=== PATIENT | female | born 1955 | race Caucasian/White ===

== ENCOUNTER 2018-02-11 11:44 | Outpatient (REF) | payer BC, SELFPAY ==
[2018-02-11 13:45] LABS: ALT 24 U/L (12-78); AST 23 U/L (15-37); Albumin 4.3 g/dL (3.4-5.0); Alkaline Phosphatase 96 U/L (46-116); Anion Gap 11.1 mmol/L (3-11); BUN 15 mg/dL (7-18); Bilirubin, Total 0.5 mg/dL (0.2-1.0); CO2 25.9 mmol/L (21.0-32.0); CREATININE 0.72 mg/dL (0.55-1.02); Calcium 9.4 mg/dL (8.5-10.1); Chloride 103 mmol/L (98-107); Cholesterol 190 mg/dL (50-200); Glucose 98 mg/dL (70-100); HDL Cholesterol 42 mg/dL (40-60); LDL CHOLESTEROL 127 mg/dL (<100); Potassium 4.5 mmol/L (3.5-5.1); Sodium 140 mmol/L (136-145); Total Protein 7.5 g/dL (6.4-8.2); Triglyceride 189 mg/dL (30-150)
== END 2018-02-11 12:04 ==
LOC: NCHCN 11:44
PROVIDERS: PCP Family Medicine; Visit Provider Nurse Practitioner
DX: R03.0 Elevated blood-pressure reading, without diagnosis of hypertension (principal); Z13.220 Encounter for screening for lipoid disorders; Z13.29 Encounter for screening for other suspected endocrine disorder
CPT/HCPCS: 80053; 80061; 83721; 84443

== ENCOUNTER 2018-09-29 12:15 | Outpatient (REF) | payer BC, SELFPAY ==
--- NOTE | 2018-09-29 10:53 | SKI_PTH ---
PATIENT: Laurie Coy LOC: [facility] U#:[id number] AGE/SX: 63/F ROOM: RE09/29/[address]: Messi Carmona DO : 1955 BED: DIS: 09/29/2018 SPEC #: [id number] RECD: 09/29/18 18:00 STATUS: RODDY REWill #: [id number] PASHA: 09/29/18 10:[address]: Messi Carmona DEPT: Surgical Specimen RECD BY: Svetlana Anderson ENTERED: 09/29/18 18:00 SP TYPE: LEVI MADRID DR: Debbie Montanez Tissues: 1 - SKIN BIOPSY(SHAVE/PUNCH) 2 - SKIN BIOPSY(SHAVE/PUNCH) 3 - SKIN BIOPSY(SHAVE/PUNCH) Procedures: SKIN LEVEL 4 Comments: [id number]
== END 2018-09-29 12:35 ==
LOC: LBN 12:15
PROVIDERS: PCP Otolaryngology Otolaryngology/Facial Plastic Surgery; Visit Provider Otolaryngology Otolaryngology/Facial Plastic Surgery
DX: C44.319 Basal cell carcinoma of skin of other parts of face (principal); D04.39 Carcinoma in situ of skin of other parts of face
CPT/HCPCS: 88305

== ENCOUNTER 2019-12-24 02:21 | Outpatient (CLI) | payer MEDICARE, SELFPAY ==
--- NOTE | 2019-12-24 09:00 | ETT_ITS ---
APPROVED REPORT Exam: Exercise Treadmill Patient Location: Out-Patient Room/Bed: Stress Nurse: Rona Garcia RN BMI: 28.89 Baseline Rhythm: Sinus Rhythm Indications: Patient presented to [facility] in October with left sided chest ???tightness?? ? with tingling in left arm, not related to activity. Patient states pain lasted approximately 30-40 minutes. Medical History Medical History: No medical history per patient/notes. Cardiac Medications: Simvastatin. Allergies: No known drug allergies Cardiac Risk Factors: FHX of CAD, HTN, Hyperlipidemia, Smoking Previous Cardiac Procedures: None Pretest Chest Pain Characteristics: No chest pain Exercise History: Physically active Physical Disabilities: None Lung Sounds: Clear to auscultation Heart Sounds: Regular Stress Test Details Test: Exercise stress testing was performed using a Jon protocol. Rest Stress HR Resting HR Supine: 75 bpm Max Heart Rate (APMHR): 155 bpm Resting HR Standin bpm Target HR (85% APMHR): 131 bpm Max HR Achieved: 136 bpm % of APMHR: 87 HR response to stress: Normal HR response to stress BP Resting BP Supine: 162/90 mmHg Resting BP Standin/88 mmHg Max BP: 198/72 mmHg BP response to stress: Normal blood pressure response to stress. ECG Resting ECG: Sinus Rhythm Stress ECG: Sinus Tachycardia ST Change: Normal Arrhythmia: None Recovery ECG: Sinus Rhythm Recovery ST Change: Normal Recovery Arrhythmia: None Clinical Reason for Termination: Fatigue, Dyspnea Stress Symptoms: None reported per patient Exercise duration: 6 min08 sec Highest Stage Reached: Stage 3: 3.4 mph at 14% grade. Exercise capacity: 7.21 METs Functional Capacity: Average Capacity Stress ECG Conclusion 1. The patient exercised for 6 minutes (7 minutes). Rate-pressure product was 25,000. 2. Patient no symptoms suggestive of ischemia. 3. There was no evidence of ischemia on the ECG portion of the exam. 4. The Mendes Score ( 5) estimates an annual cardiovascular mortality of 1% and a five year survival of 94%. Using the Mendes Score there is a low probability of any angiographic coronary disease. Stress Test Summary STAGE Time (mins) Speed (mph) Grade (%) HR BP SYMPTOMS METS Supine 75 162/90 Standing 79 168/88 1 3 1.7 10 118 190/78 4.6 2 6 2.5 12 136 194/70 7 1 min recovery 129 198/72 3 min recovery 100 176/78 6 min recovery 92 166/88 9 min recovery 90 158/90
== END 2019-12-24 02:41 ==
PROVIDERS: PCP Nurse Practitioner; Visit Provider Nurse Practitioner
DX: R07.89 Other chest pain (principal); I10 Essential (primary) hypertension; F17.210 Nicotine dependence, cigarettes, uncomplicated; E78.5 Hyperlipidemia, unspecified; Z82.49 Family history of ischemic heart disease and other diseases of the circulatory system
CPT/HCPCS: 93016; 93018; 93017

== ENCOUNTER 2020-09-22 11:17 | Outpatient (CLI) | payer MEDICARE, SELFPAY ==
--- NOTE | 2020-09-22 10:31 | DI.RAD_ITS ---
Exam(s) XR HIP RT COMPLETE AP PELVIS EXAM: XR HIP RT COMPLETE AP PELVIS CLINICAL HISTORY: RT HIP PAIN M25.551 TECHNIQUE: COMPARISON: No exams were available for comparison FINDINGS: Three views were obtained. Cartilaginous joint space of both hips appear fairly well maintained. Th ere are minimal marginal osteophytes of the femoral heads and acetabula bilaterally, mild hypertrophi c spurring of the greater trochanters also noted bilaterally. IMPRESSION: Mild DJD both hips. RADIATION DOSE DELIVERED: Total DLP
--- OUTSIDE RECORDS SUMMARY | 2020-09-23 11:20 | XMS_ITS ---
:1955 Author Care Team Providers Name Role Phone NEENA GIORDANO MD General Surgeon [phone] TRUNG ZIMMERMAN Primary Care Provider [phone] Allergies Code Code System Name Reaction Severity Status Onset NKDA ? Medications Name Status Start Date Stop Date ? ? allopurinol 100 mg tablet Completed 12/21/20142014 1 (one) Tablet: qd - daily amoxicillin 500 mg capsule Completed 03/02/201303/12 1 (one) Cap: three times a day amoxicillin 875 mg-potassium Completed ? clavulanate 125 mg tablet Ativan 1 mg tablet Completed 02/14/2011 02/24/2011 1 Tablet: At bedtime Bactrim DS 800 mg-160 mg tablet Completed 08/24/2013 08/31/2013 1 (one) Tablet: every 12 hours ciclopirox 0.77 % topical Completed ? 2019 cream Colcrys 0.6 mg tablet Completed ? 11/20/2019 Flomax 0.4 mg capsule Completed 08/24/2013 10/27/2013 1 (one) Capsule: 1/2 hr following same meal each day Flonase 50 mcg/actuation nasal spray,suspension Completed 05/28/2012 10/27/2013 2 (two) spray(s): each nostril daily Guaifenesin AC 10 mg-100 mg/5 mL oral liquid Completed 03/25/2012 1-2 Teaspoon(s): every 4 to 6 hours as needed for cough hydrocodone 5 mg-acetaminophen 325 mg tablet Completed 10/27/2013 1-2 Tablet: Every 4 to 6 hours as needed lamotrigine 200 mg tablet Active 11/20/2019 Not av ailable 1 tablet every day by oral route. levomefolate calcium 15 mg tablet Active 11/20/2019 Not available 1 tablet every day by oral route. lithium carbonate 300 mg capsule Completed 08/15/2015 09/26/2016 1 (one) Capsule: one in AM two in PM lithium carbonate 300 mg tablet Completed 12/20/2014 01/12/2015 1 (one) Tablet: ud nicotine 21 mg/24 hr daily transdermal patch Active Not available Apply 1 patch every day by transdermal route. Patanol 0.1 % eye drops Completed 06/05/2010 06/05/19 11 1 Drop(s): two times daily penicillin V potassium 500 mg Completed ? tablet prednisone 10 mg tablet Completed ? 11/20/19 20 prednisone 20 mg tablet Completed 05/28/2010 06/02/19 11 1 (one) Tablet: daily ProAir HFA 90 mcg/actuation Completed ? 10/28 aerosol inhaler simvastatin 10 mg tablet Active 11/20/2019 Not shobha ilable 1 tablet every day by oral route at bedtime. Notes: med rec 11/20/2019 wmd Problems Name Status Onset Date Source ? Benign Neoplastic Disease Active ? Histor y Bipolar Disorder Active ? History Nicotine Dependence Active ? History Disorder of Orbit Proper Active ? History Tracheobronchitis Active ? History Musculoskeletal Symptom Active ? History Nausea and Vomiting Active ? History Elevated Blood-pressure Reading without Active ? History Diagnosis of Hypertension Sprain of Shoulder Rotator Cuff Active ? History Gynecologic Examination Active ? History Screening Mammography Active ? History Pain of Toe of Right Foot Active ? Histor y Procedures Date Name Performed by ? 04/29/1979 Tubal Ligation Information not avai lable 04/29/1965 Tonsillectomy Information not avai lable 04/29/1964 Hernia Repair Information not avai lable ? Orthopedic Surgery Information not avai lable Notes: Left rotator cuff surgery-12/31/2007. Repetitive use injury, Right small toe amputation, 201410/08/2017 MAMMO, Screening, Tomosynthesis, [facility] (Internal) Bilateral [address] [place] [address] (Work Place) 10/29/2017 MAMMO, Screening, Tomosynthesis, [facility] (Internal) Bilateral [address] [place] [address] (Work Place) Results Lab Results Date Name Specimen Result Interpretation Description Value Range Status Address ? 11/20/2019 Troponin I, S ? Trop <0.06 0.00-0.06 Final [place] Serum or NG/mL NG/mL [facility] (Internal) : [address] 11/20/2019 SARS CoV 2 SWAB ? Covid-19 negative negative [place] RNA Result [facility] (COVID-19), Hospi charo Lab QL, sales engineer-PCR, (Int ernal): Respiratory [address] Specimen [place]mie Kumar [place] ? ? SWAB ? Performing the broad ? Final No rth Lab institute [facility] (Internal) : [address] 10/29/2017 Pathology TISS - Report results ? Final N orth Study below [facility] (Internal) : [address] Past Encounters None recorded. Social History Tobacco Smoking Status Heavy Tobacco Smoker (1/2 PPD) Vaccine List Vaccine Type influenza, seasonal, injectable 02/22/2012 influenza, seasonal, injectable, preserv ative free 03/21/2011?0.5 mL 03/31/2013?0.5 mL 03/30/2014?0.5 mL Tdap 03/25/2012?0.5 mL tetanus toxoid, adsorbed 04/29/2005 Plan of Care Reminders Provider Appointments None ? ? recorded. Lab None ? ? recorded. Referral None ? ? recorded. Procedures None ? ? recorded. Surgeries None ? ? recorded. Imaging None ? ? recorded. Vitals 10/29/2017 01:40PM HME 20 Height Weight BMI Blood Pressure 165.1 cm 85.73 kg 31.5 kg/m2 120/82 mm[Hg] 09/26/2016 Height Weight Blood Pressure 160.02 cm 85.68 kg 162/94 mm[Hg] 07/11/2015 Height Weight Blood Pressure 158.75 cm 84.82 kg 128/70 mm[Hg] 02/24/2015 Height Weight Blood Pressure 158.75 cm 82.64 kg 132/80 mm[Hg] 01/31/2015 Weight Blood Pressure 83.05 kg 130/72 mm[Hg] 12/20/2014 Weight Blood Pressure 81.74 kg 140/86 mm[Hg] 11/02/2014 Height Weight Blood Pressure 158.75 cm 83.01 kg 128/80 mm[Hg] 09/28/2014 Height Weight Blood Pressure 158.75 cm 83.01 kg 132/78 mm[Hg] 09/14/2014 Height Weight Blood Pressure 158.75 cm 83.01 kg 142/84 mm[Hg] 09/01/2014 Height Weight Blood Pressure 158.75 cm 83.01 kg 146/96 mm[Hg] 03/30/2014 Height Weight Blood Pressure 158.75 cm 83.01 kg 140/90 mm[Hg] 10/27/2013 Height Weight Blood Pressure 158.75 cm 81.51 kg 142/84 mm[Hg] 03/31/2013 Height Weight Blood Pressure 158.75 cm 79.38 kg 122/80 mm[Hg] 03/02/2013 Weight Blood Pressure 80.78 kg 118/80 mm[Hg] 11/03/2012 Weight Blood Pressure 81.51 kg 130/84 mm[Hg] 05/28/2012 Weight Blood Pressure 82.37 kg 122/78 mm[Hg] 03/25/2012 Height Weight Blood Pressure 158.75 cm 80.2 kg 122/62 mm[Hg] 09/19/2011 Height Weight Blood Pressure 158.75 cm 83.64 kg 106/74 mm[Hg] 03/21/2011 Height Weight Blood Pressure 158.75 cm 84.82 kg 122/80 mm[Hg] 03/16/2011 Weight Blood Pressure 84.69 kg 134/80 mm[Hg] 07/07/2010 Height Weight Blood Pressure 158.75 cm 84.05 kg 130/88 mm[Hg] 06/05/2010 Weight Blood Pressure 82.33 kg 120/88 mm[Hg] 01/23/2008 Height Weight Blood Pressure 159.77 cm 80.29 kg 118/86 mm[Hg] 12/23/2007 Weight Blood Pressure 81.65 kg 126/78 mm[Hg] 12/02/2007 Weight Blood Pressure 79.83 kg 128/82 mm[Hg] 06/09/2007 Weight Blood Pressure 83.91 kg 120/84 mm[Hg] 11/19/2005 Height Weight Blood Pressure 158.75 cm 78.93 kg 110/70 mm[Hg]
== END 2020-09-22 11:37 ==
PROVIDERS: PCP Nurse Practitioner; Visit Provider Nurse Practitioner
DX: M25.551 Pain in right hip (principal); M16.0 Bilateral primary osteoarthritis of hip
CPT/HCPCS: 73502

== ENCOUNTER 2020-10-05 16:12 | Outpatient (CLI) | payer MEDICARE, SELFPAY ==
--- NOTE | 2020-10-05 | DI.RAD_ITS ---
Exam(s) XR CHEST 2V PA LATERAL EXAM: XR CHEST 2V PA LATERAL INDICATION: COUGH R05. COMPARISON: No exams were available for comparison TECHNIQUE: 2D digital imaging was performed. FINDINGS: The heart is enlarged. The aorta is tortuous. There is linear atelectasis at the right lung base. No infiltrate or effusion is seen. Degenerative changes are seen in the spine. IMPRESSION: Cardiomegaly. No acute abnormality. DATA REPOSITORY: RADIATION DOSE DELIVERED:
--- NOTE | 2020-10-05 17:33 | DI.VRAD_ITS ---
PROCEDURE INFORMATION: Exam: XR Chest Exam date and time: 10/05/2020 4:48 PM Age: 65 years old Clinical indication: Patient HX: Pui, rule out covid-19, PT has worsening cough TECHNIQUE: Imaging protocol: XR of the chest. Views: 2 views. COMPARISON: No relevant prior studies available. FINDINGS: Lungs: Strand of atelectasis or fibrosis in the right lung base. Pleural spaces: Unremarkable. No pleural effusion. No pneumothorax. Heart/Mediastinum: Unremarkable. No cardiomegaly. Vasculature: Tortuous aorta. Bones/joints: Degenerative arthritis in the spine and shoulders. Suture anchors in the left humeral head. IMPRESSION: No acute findings Dictated and Authenticated by: Tiera Mcneal MD. Ordering:CHAUNCEY Madera MD
== END 2020-10-05 16:32 ==
PROVIDERS: PCP Nurse Practitioner; Visit Provider Physician Assistant Medical
DX: R05 Cough (principal); I51.7 Cardiomegaly
CPT/HCPCS: 71046

== ENCOUNTER 2020-10-05 19:54 | Outpatient (REF) | payer MEDICARE, SELFPAY ==
[2020-10-07 14:28] LABS: COVID-19 RT-PCR UVMMC Result Negative (Negative)
== END 2020-10-05 19:55 | disposition home or self-care (01) ==
LOC: LBN 19:54
PROVIDERS: PCP Nurse Practitioner; Visit Provider Physician Assistant Medical
DX: Z20.822 Contact with and (suspected) exposure to COVID-19 (principal); J06.9 Acute upper respiratory infection, unspecified
CPT/HCPCS: U0003; U0005

== ENCOUNTER → 2020-11-18 09:22 | Outpatient (BNVA) | payer MEDICARE, SELFPAY | PROVIDERS: PCP Nurse Practitioner; Referring Provider Nurse Practitioner; Visit Provider Student in an Organized Health Care Education/Training Program | DX: M67.432 Ganglion, left wrist (principal); M77.41 Metatarsalgia, right foot; M77.42 Metatarsalgia, left foot | CPT/HCPCS: 99203 ==

== ENCOUNTER → 2021-01-06 10:20 | Outpatient (BNVA) | payer MEDICARE, SELFPAY | PROVIDERS: PCP Nurse Practitioner; Referring Provider Nurse Practitioner; Visit Provider Student in an Organized Health Care Education/Training Program | DX: M25.851 Other specified joint disorders, right hip (principal) | CPT/HCPCS: 99213 ==

== ENCOUNTER 2021-04-06 09:25 | Outpatient (REF) | payer MEDICARE, SELFPAY ==
[2021-04-06 15:10] LABS: ALT 21 U/L (14-59); AST 8 U/L (15-37); Albumin 4.4 g/dL (3.4-5.0); Alkaline Phosphatase 109 U/L (46-116); Anion Gap 12.6 mmol/L (3-11); BUN 15 mg/dL (7-18); Bilirubin, Total 0.3 mg/dL (0.2-1.0); CO2 25.4 mmol/L (21.0-32.0); CREATININE 0.8 mg/dL (0.55-1.02); Calcium 9.6 mg/dL (8.5-10.1); Calculated LDL 117 mg/dL (<100); Chloride 101 mmol/L (98-107); Cholesterol 187 mg/dL (<200); Glucose 114 mg/dL (74-106); HDL Cholesterol 45 mg/dL (40-60); Potassium 4.6 mmol/L (3.5-5.1); Sodium 139 mmol/L (136-145); Total Protein 7.4 g/dL (6.4-8.2); Triglyceride 126 mg/dL (<150)
== END 2021-04-06 09:26 | disposition home or self-care (01) ==
LOC: NCHCN 09:25
PROVIDERS: PCP Nurse Practitioner; Visit Provider Nurse Practitioner
DX: E78.5 Hyperlipidemia, unspecified (principal); I10 Essential (primary) hypertension
CPT/HCPCS: 80053; 80061

== ENCOUNTER 2022-08-12 17:55 | Emergency (ER) | payer MEDICARE, SELFPAY ==
[2022-08-12 17:58] VITALS: PULSE 83; RESP 18; TEMP 36.7; O2SAT 94
[2022-08-12 18:00] VITALS: BP 163/90
--- NOTE | 2022-08-12 18:00 | DI.RAD_ITS ---
Exam(s) XR PORTABLE CHEST AP EXAM: XR PORTABLE CHEST AP CLINICAL HISTORY: cough. TECHNIQUE: 2D digital imaging was performed. COMPARISON: Prior chest x-ray September 2020 FINDINGS: Single AP portable view. Heart size is upper normal. The mediastinum is not widened. Lungs are clear. No infiltrates nor obvious pleural effusions. IMPRESSION: No acute pulmonary findings on this single AP portable view of the chest. DATA REPOSITORY: RADIATION DOSE DELIVERED:
--- NOTE | 2022-08-12 18:09 | ED.GENADUL_ITS ---
Discharge Plan Disposition Patient Disposition: Home Condition: Stable Discharge Details Clinical Impression: Cough, Upper respiratory infection Primary Care Provider: APRIL CALERO ED Provider: Julio Mckeon Home Meds and New Rx's Prescriptions: New prednisone 20 mg tablet 60 mg PO DAILY 4 Days Qty: 12 0RF amoxicillin-pot clavulanate 875-125 mg tablet 1 tab PO BID Qty: 14 0RF Continued lamotrigine 200 mg tablet 200 mg PO DAILY simvastatin 10 mg tablet 10 mg PO QHS levomefolate calcium [L-Methylfolate] 15 mg tablet 15 mg PO DAILY Patient Comments: not taking hydrochlorothiazide 12.5 mg tablet 12.5 mg PO DAILY nicotine [Nicoderm CQ] 21 mg/24 hr patch 24 hour 1 patch transdermal DAILY Patient Comments: not taking ibuprofen 600 MG tablet 600 mg PO .1 PO Q6H Qty: 40 1RF Discharge Instructions Instructions: Upper Respiratory Infection (ED) Additional Instructions: Your xray and flu/covid test were negative follow up with your primary care provider within 1 week especially if symptoms continue if you feel more ill, have worsening difficulty breathing or fevers return to the emergency department Medical Decision Making 67 yo female who is a chronic somker, hx of htn, hld, who comes in with chief complaint of 5 days of nasal congestion and cough. Denies any fevers, chills, chest pain, dyspnea, recent travel. She denies any abdominal pain or vomiting. She is stable on arrival speaking in full sentences. She has clear rhinorrhea, no facial swelling, perrl, eomi without pain. She has wheezing bilaterally at the bases on lung auscultation. She Has no murmurs, no jvd, no leg swelling or calf tenderness. Symptoms seem consistent with uri, will obtain fluvid and xray. Given her wheezing will trial a duoneb and prednisone, given her chronic smoking she could have undiagnosed copd. Given well appearance and is afebrile doubt sepsis and do not feel labs indicated. fluvid and xray unremarkable, she feels better after neb and prednisone. Lungs clear, speaking in full sentences, o2 sat 96% on room air. She is stable for d/c, will provide inhaler and prednisone. Will also provide augmentin for possible sinusitis since it's almost been 7 days. Will have her f/u with pcp, return precautions given Differential Diagnosis Differential Diagnosis: bronchitis, copd, pneumonia, flu, covid Medical Records Medical records reviewed: Yes I reviewed the patient's medical records. Imaging Data Radiologic Study: Imaging: X-Ray Radiologist's impression: no acute findings Lab Data Lab results reviewed: Yes I reviewed the patient's lab results. HPI General Mode of arrival: ambulatory . Date/Time Provider Initiated Documentation: 08/12/22 17:59 . Limitations to Documentation: no limitations . Information obtained by: patient . History of Present Illness 67 year old F presents to the emergency department with the chief complaint of cough, gonzález cribed as moderate, Patient reports no radiation. Patient started experiencing this day(s) (5) and it has been intermittent. No relieving factors improve symptom(s), No exacerbating factors reported . Patient notes denies fever/chills. Patient did receive the following treatments prior to arrival, none Related Data Home Medications Medication Instructions Recorded Confirmed ibuprofen 600 mg tablet 600 mg PO .1 PO Q6H #40 tabs 03/18/15 08/12/22 lamotrigine 200 mg tablet 200 mg PO DAILY 11/18/20 08/12/22 levomefolate calcium 15 mg tablet 15 mg PO DAILY 11/18/20 08/12/22 (L-Methylfolate) simvastatin 10 mg tablet 10 mg PO QHS 11/18/20 08/12/22 hydrochlorothiazide 12.5 mg tablet 12.5 mg PO DAILY 03/07/22 08/12/22 nicotine 21 mg/24 hr daily 1 patch transdermal DAILY 03/07/22 transdermal patch (Nicoderm CQ) amoxicillin 875 mg-potassium 1 tab PO BID #14 tabs 08/12/22 clavulanate 125 mg tablet prednisone 20 mg tablet 60 mg PO DAILY 4 days #12 tabs 08/12/22 Previous Rx's Medication Instructions Recorded ibuprofen 600 mg tablet 600 mg PO .1 PO Q6H #40 tabs 03/18/15 amoxicillin 875 mg-potassium 1 tab PO BID #14 tabs 08/12/22 clavulanate 125 mg tablet prednisone 20 mg tablet 60 mg PO DAILY 4 days #12 tabs 08/12/22 Allergies Allergy/AdvReac Type Severity Reaction Status Date / Time latex Allergy Intermediate Verified 08/12/22 18:00 allopurinol AdvReac Intermediate Dehydration Unverified 08/12/22 18:00 contrast dye AdvReac Unknown Uncoded 08/12/22 18:00 General Stated Complaint: RespSymp LEE: 4 Review of Systems All systems reviewed & are unremarkable except as noted in HPI and below Constitutional Constitutional: Denies chills, Denies fever(s) and Denies weakness Cardiovascular Cardiovascular: Denies chest pain and Denies dyspnea Respiratory Respiratory: Denies dyspnea Gastrointestinal Gastrointestinal: Denies abdominal pain, Denies nausea and Denies vomiting Integumentary/Breasts Skin/Breast: Denies rash Neurologic Neurologic: Denies weakness PFSH All Active Problems (Updated 08/12/22 @ 19:26 by Julio Mckeon MD) Cough (Acute) Upper respiratory infection (Acute) Hyperlipidemia (Acute) Hypertension (Chronic) Femoroacetabular impingement of right hip (Acute) Actinic keratoses (Acute) Medical History (Updated 08/12/22 @ 19:26 by Julio Mckeon MD) Basal cell carcinoma of skin of other and unspecified parts of face Bipolar 1 disorder Ganglion cyst of volar aspect of left wrist History of basal cell carcinoma Metatarsalgia of both feet Neoplasm of bone, soft tissue, or skin Squamous cell carcinoma in situ Tobacco use disorder Wound dehiscence Social History Smoking/Tobacco Use Status: Current every day Smoking risk assessment performed?: Yes Alcohol Intake: never Drug use: Never Do you feel safe in your relationship?: Yes Exam Const General: no acute distress Orientation: alert HENNE Head: normal to inspection Ears: external ears normal General nose exam: external nose normal Mouth: moist mucous membranes Eyes General: appearance normal, both eyes and all related structures Neck Neck: normal visual inspection Resp Effort & Inspection: normal respiratory effort and able to speak in complete sentences Auscultation: wheezes Cardio Jugular venous pressure: no JVD Rate: regular rate Heart Sounds: no murmurs Skin General skin exam: no rashes or lesions noted Neuro General: patient alert and patient oriented x3 Extrem General: normal to inspection Psych Mental Status: mental status grossly normal Course Vital Signs Vital signs: Vital Signs Temperature 36.7 C 08/12/22 17:58 Pulse 83 08/12/22 17:58 Respiratory Rate 18 08/12/22 17:58 Pulse Oximetry 94 08/12/22 17:58 Temperature 36.7 C 08/12/22 17:58 Temperature Source Temporal Artery Scan 08/12/22 17:58 Pulse 83 08/12/22 17:58 Respiratory Rate 18 08/12/22 17:58 Respiratory Effort Normal, Non-Labored 08/12/22 17:59 Blood Pressure 163/90 H 08/12/22 18:00 Pulse Oximetry 94 08/12/22 17:58 Oxygen Delivery Method Room Air 08/12/22 17:58 Oxygen Flow Rate 0 08/12/22 17:58
[2022-08-12 18:32] VITALS: PULSE 83; RESP 18; RESP 4; O2SAT 94
[2022-08-12] MEDS: Albuterol/Ipratropium 3 ML UPD VIAL UPD (18:32)
[2022-08-12] MEDS: predniSONE 20 MG TAB 60 MG PO (18:32)
[2022-08-12 18:44] LABS: COVID-19 PCR Negative (Negative); Influenza A PCR Negative (Negative); Influenza B PCR Negative (Negative); RSV PCR Negative (Negative)
[2022-08-12 18:47] LABS: Source Nasopharynx
--- NOTE | 2022-08-12 19:06 | DI.VRAD_ITS ---
PROCEDURE INFORMATION: Exam: XR Chest Exam date and time: 08/12/2022 6:26 PM Age: 67 years old Clinical indication: Cough TECHNIQUE: Imaging protocol: Radiologic exam of the chest. Views: 1 view. COMPARISON: CR XR CHEST 2V PA LATERAL 10/05/2020 5:09 PM FINDINGS: Lungs: Unremarkable. No consolidation. Pleural spaces: Unremarkable. No pleural effusion. No pneumothorax. Heart/Mediastinum: Unremarkable. No cardiomegaly. Bones/joints: Moderate degenerative changes noted in the spine and shoulders. IMPRESSION: No acute disease Dictated and Authenticated by: Branden Alexander MD. Ordering:KATELIN Kim MD
[2022-08-12] MEDS: Albuterol HFA 8 GM 60 PUFF INH IH (19:34)
[2022-08-12] MEDS: Amoxicillin 875/Clav. 125 TAB PO (19:35)
== END 2022-08-12 19:56 | disposition home or self-care (01) ==
PROVIDERS: Emergency Provider Emergency Medicine; PCP Nurse Practitioner Family
DX: J06.9 Acute upper respiratory infection, unspecified (principal); I10 Essential (primary) hypertension; F17.200 Nicotine dependence, unspecified, uncomplicated; Z20.822 Contact with and (suspected) exposure to COVID-19
CPT/HCPCS: 87637; 94640; 99284; 71045; J7512; J7620

== ENCOUNTER 2022-11-13 16:09 | Outpatient (REF) | payer MEDICARE, SELFPAY ==
[2022-11-13 17:11] LABS: HCT 44.8 % (36.0-46.0); HGB 14.6 g/dL (11.2-15.7); MCH 27.5 pg (27.0-33.0); MCHC 32.6 % (32.0-36.0); MCV 85 fL (80-95); MPV 11.3 fL (8.0-11.0); Platelet Count 276 10^3/uL (130-400); RDW 14.2 % (11.7-14.6); RDW-SD 44.1 fL; WBC 10.77 10^3/uL (4.4-10.8)
[2022-11-13 17:58] LABS: ALT 24 U/L (14-59); AST 20 U/L (15-37); Albumin 4.3 g/dL (3.4-5.0); Alkaline Phosphatase 101 U/L (46-116); Anion Gap 10.9 mmol/L (3-11); BUN 10 mg/dL (7-18); Bilirubin, Total 0.4 mg/dL (0.2-1.0); CO2 26.1 mmol/L (21.0-32.0); CREATININE 0.8 mg/dL (0.55-1.02); Calcium 9.5 mg/dL (8.5-10.1); Calculated LDL 103 mg/dL (<100); Chloride 102 mmol/L (98-107); Cholesterol 177 mg/dL (<200); Estimated GFR 80.21 (mL/min/1.73m2); Glucose 103 mg/dL (74-106); HDL Cholesterol 44 mg/dL (40-60); Potassium 4.1 mmol/L (3.5-5.1); Sodium 139 mmol/L (136-145); Total Protein 7.3 g/dL (6.4-8.2); Triglyceride 153 mg/dL (<150); Vitamin B12 145 pg/mL (193-986)
[2022-11-13 18:07] LABS: Folate > 20.0 ng/mL (8.6-20.0)
== END 2022-11-13 16:10 | disposition home or self-care (01) ==
LOC: NCHCN 16:09
PROVIDERS: PCP Nurse Practitioner Family; Visit Provider Nurse Practitioner Family
DX: I10 Essential (primary) hypertension (principal); Z51.81 Encounter for therapeutic drug level monitoring; E78.5 Hyperlipidemia, unspecified; F31.9 Bipolar disorder, unspecified
CPT/HCPCS: 80053; 80061; 80175; 85027; 82607; 82746; 83036

== ENCOUNTER 2023-06-26 13:09 | Outpatient (REF) | payer MEDICARE, SELFPAY ==
[2023-06-26 19:20] LABS: HCT 44.3 % (36.0-46.0); HGB 14.6 g/dL (11.2-15.7); MCH 27.6 pg (27.0-33.0); MCV 84 fL (80-95); MPV 11.1 fL (8.0-11.0); Platelet Count 275 10^3/uL (130-400); RBC 5.29 10^6/uL (3.93-5.22); RDW 14.7 % (11.7-14.6); RDW-SD 45.1 fL; WBC 9.87 10^3/uL (4.4-10.8)
[2023-06-26 20:22] LABS: Hemoglobin A1C 5.9 % (<5.7)
[2023-06-26 20:30] LABS: ALT 17 U/L (14-59); AST 15 U/L (15-37); Albumin 4.1 g/dL (3.4-5.0); Alkaline Phosphatase 108 U/L (46-116); Anion Gap 11.2 mmol/L (3-11); BUN 15 mg/dL (7-18); Bilirubin, Total 0.4 mg/dL (0.2-1.0); CO2 26.8 mmol/L (21.0-32.0); CREATININE 0.8 mg/dL (0.55-1.02); Calculated LDL 81 mg/dL (<100); Chloride 100 mmol/L (98-107); Cholesterol 187 mg/dL (<200); Estimated GFR 80.21 (mL/min/1.73m2); Glucose 110 mg/dL (74-106); HDL Cholesterol 44 mg/dL (40-60); Potassium 4.3 mmol/L (3.5-5.1); Sodium 138 mmol/L (136-145); Triglyceride 312 mg/dL (<150)
== END 2023-06-26 13:10 | disposition home or self-care (01) ==
LOC: NCHCN 13:09
PROVIDERS: PCP Nurse Practitioner Family; Referring Provider Nurse Practitioner Family; Visit Provider Nurse Practitioner Family
DX: I10 Essential (primary) hypertension (principal); R73.03 Prediabetes; E78.5 Hyperlipidemia, unspecified; R22.0 Localized swelling, mass and lump, head
CPT/HCPCS: 80053; 80061; 85027; 83036

== ENCOUNTER → 2023-07-16 03:10 | Outpatient (CLI) | payer MEDICARE, SELFPAY ==
--- NOTE | 2023-07-16 | DI.CT_ITS ---
Exam(s) CT FACIAL W EXAM: CT FACIAL W CLINICAL HISTORY: SWELLING LOWER [place] REGION,R22.0. TECHNIQUE: Imaging Protocol: Axial computed tomography images with coronal and sagittal reformatted images were created and reviewed. No IV contrast COMPARISON: No exams were available for comparison FINDINGS: MAXILLOFACIAL CT SCAN: SOFT TISSUES: Paranasal sinuses: Well aerated. No significant mucosal thickening nor fluid levels. Salivary glands: Soft tissues: There is a centrally hypodense mass in the inferior aspect of the left parotid gland im mediately subjacent to the skin marker, this mass measuring 2.0 x 2.2 x 2.2 cm. This does not invade the adjacent left sternocleidomastoid muscle. This is concerning for neoplasm. Remainder of the left parotid gland appears unremarkable and there are no focal findings in the right parotid gland. There are no significant findings in the submandibular glands. Lymph nodes: There is no obvious lymphadenopathy in either side of the neck. Nasopharynx: Unremarkable Oropharynx: Unremarkable. Hypopharynx: Unremarkable. OSSEOUS: No fractures of the mandible nor other facial bones. No osseous lesions. IMPRESSION: There is a 2 x 2.2 x 2.2 cm centrally hypodense lesion in the inferior aspect of the left parotid gla nd, this corresponding to the palpable finding. First consideration is for neoplasm There is no prominent adenopathy in the neck. RADIATION DOSE DELIVERED: Total DLP DATA REPOSITORY: All CT scans at this facility are submitted to the National Radiology Data Registry (NRDR) Dose Index Registry (DIR) with the [employer] (ACR). RADIATION OPTIMIZATION: All CT scans at this facility use at least one of these dose optimization te chniques: automated exposure control; mA and/or kV adjustment per patient size (includes targeted exa ms where dose is matched to clinical indication); or iterative reconstruction.
[2023-07-16] MEDS: Omnipaque 350 MG/ML 100 ML BTL IJ (09:24)
== END ==
PROVIDERS: PCP Nurse Practitioner Family; Visit Provider Nurse Practitioner Family
DX: R22.0 Localized swelling, mass and lump, head (principal)
CPT/HCPCS: 70487; J3490

== ENCOUNTER 2023-07-19 15:37 | Outpatient (REF) | payer MEDICARE, SELFPAY ==
--- NOTE | 2023-07-19 13:30 | PAPNONF_PTH ---
PATIENT: Laurie Coy LOC: [facility] U#:[id number] AGE/SX: 67/F ROOM: RE07/19/[address]: CLAUDIA Vargas : 1955 BED: DIS: 07/19/2023 SPEC #: [id number] RECD: 07/19/23 18:10 STATUS: RODDY REQ #: [id number] PASHA: 07/19/23 13:[address]: Dennis De La Cruz DEPT: [facility] Cytology RECD BY: Svetlana Anderson ENTERED: 07/19/23 18:11 SP TYPE: DEBRA MADRID DR: APRIL CALERO, DIRECTOR OF INSTRUMENTAL MUSIC Tissues: 1 - BODY FLUID CYTO(NOT S/U/N/EM)[facility] Procedures: BODY FLUID CYTO(NOT SPU/UR/NIP/ENDOM)[facility] Comments: [id number] (REFRIGERATED)
== END 2023-07-19 15:38 | disposition home or self-care (01) ==
LOC: LBN 15:37
PROVIDERS: PCP Nurse Practitioner Family; Visit Provider Physician Assistant
DX: K11.8 Other diseases of salivary glands (principal)
CPT/HCPCS: 88104

== ENCOUNTER → 2024-09-15 10:55 | Outpatient (BNVA) | payer MEDICARE, SELFPAY | PROVIDERS: PCP Nurse Practitioner Family; Referring Provider Nurse Practitioner Family; Visit Provider Podiatrist | DX: B35.1 Tinea unguium (principal); L60.3 Nail dystrophy | CPT/HCPCS: 99213 ==

== ENCOUNTER 2024-10-08 13:58 | Outpatient (REF) | payer MEDICARE, SELFPAY ==
[2024-10-08 15:13] LABS: HCT 43.8 % (36.0-46.0); HGB 14.4 g/dL (11.2-15.7); MCH 27.7 pg (27.0-33.0); MCHC 32.9 % (32.0-36.0); MCV 84 fL (80-95); MPV 11.1 fL (8.0-11.0); Platelet Count 256 10^3/uL (130-400); RBC 5.19 10^6/uL (3.93-5.22); RDW 14.3 % (11.7-14.6); RDW-SD 43.9 fL
[2024-10-08 15:29] LABS: Hemoglobin A1C 5.9 % (<5.7)
[2024-10-08 15:32] LABS: ALT 22 U/L (14-59); AST 22 U/L (15-37); Albumin 4.3 g/dL (3.4-5.0); Alkaline Phosphatase 100 U/L (46-116); Anion Gap 8.8 mmol/L (3-11); BUN 12 mg/dL (7-18); Bilirubin, Total 0.5 mg/dL (0.2-1.0); CO2 28.2 mmol/L (21.0-32.0); CREATININE 0.9 mg/dL (0.55-1.02); Calcium 9.8 mg/dL (8.5-10.1); Calculated LDL 98 mg/dL (<100); Chloride 100 mmol/L (98-107); Cholesterol 179 mg/dL (<200); Estimated GFR 68.77 (mL/min/1.73m2); Glucose 104 mg/dL (74-106); HDL Cholesterol 47 mg/dL (>or=50); Sodium 137 mmol/L (136-145); Total Protein 7.8 g/dL (6.4-8.2); Triglyceride 172 mg/dL (<150)
== END 2024-10-08 13:59 | disposition home or self-care (01) ==
LOC: NCHCN 13:58
PROVIDERS: PCP Nurse Practitioner Family; Visit Provider Nurse Practitioner Family
DX: E78.5 Hyperlipidemia, unspecified (principal); R73.03 Prediabetes
CPT/HCPCS: 80053; 80061; 85027; 83036

== ENCOUNTER 2024-12-10 01:20 | Outpatient (CLI) | payer MEDICARE, SELFPAY ==
--- NOTE | 2024-12-10 | ETT_ITS ---
APPROVED REPORT Exam: Exercise Treadmill Patient Location: Out-Patient Room/Bed: Stress Nurse: Terrie eZlaya RN Ordering Provider:APRIL GALILEA, Contact Number: [phone] BMI: 31.70 Baseline Rhythm: Sinus Rhythm. Indications: Chest Discomfort; Other Chest Pain, Dizziness, SOB. Medical History Medical History: Bipolar Disorder; Chest Discomfort; Prediabetes Mellitus; HLD; HTN; Skin Cancer; Vitamin B12 Deficiency. Cardiac Medications: Albuterol Sulfate; Hydrochlorothiazide; [id number]; Lamotrigine; Levomefolate; Promethazine; Simvastatin. Allergies: Allopurinol; Contrast Dye; Latex; N-acetylcysteine; Shellfish. Cardiac Risk Factors: HLD; HTN; Prediabetes Mellitus; Current Smoker. Previous Cardiac Procedures: None. Pretest Chest Pain Characteristics: None. Exercise History: Indeterminate. Physical Disabilities: None. Lung Sounds: Clear bilaterally throughout, anterior and posterior. Heart Sounds: S1 and S2 auscultated. Stress Test Details Test: Exercise stress testing was performed using a Jon protocol. Rest Stress HR Resting HR Supine: 70 bpm Max Heart Rate (APMHR): 150 bpm Resting HR Standin bpm Target HR (85% APMHR): 128 bpm Max HR Achieved: 124 bpm % of APMHR: 83 Recovery HR: 77 bpm HR response to stress: Normal HR response to stress. BP Resting BP Supine: 140/82 mmHg Resting BP Standin/70 mmHg Max BP: 200/98 mmHg Recovery BP: 146/78 mmHg BP response to stress: Normal blood pressure response to stress. ECG Resting ECG: Sinus Rhythm. Ectopy: None. Stress ECG: Sinus Tachycardia. ST Change: Nondiagnostic low heart rate. Arrhythmia: None. Recovery ECG: Sinus Rhythm. Recovery ST Change: Nondiagnostic low heart rate. Recovery Arrhythmia: One uncaptured PVC noted. Clinical Reason for Termination: Dyspnea, Fatigue, Hip Pain. Stress Symptoms: Dyspnea, General Fatigue. Exercise duration: 03 min01 sec Highest Stage Reached: Stage 1: 1.7 mph at 10% grade. Exercise capacity: 4.64 METs Angina Score: None Rate Pressure Product: [id number] Stress ECG Conclusion 1. Resting electrocardiogram showed low voltage, left axis and poor R wave progression 2. Patient exercised on the Jon protocol and completed stage I, a workload of 4.64 METS 3. Normal heart rate and blood pressure response to exercise. The patient achieved 83% of maximal predicted heart rate for age 4. There was no electrocardiographic evidence of myocardial ischemia at a minimally submaximal heart rate 5. There were no significant dysrhythmias Stress Test Summary STAGE Time (mins) Speed (mph) Grade (%) HR BP SpO2 SYMPTOMS METS Supine 70 140/82 96 Pt. is asymptomatic. Standing 74 132/70 97 Pt. is asymptomatic. 1 3 1.7 10 118 93 Pt. c/o moderate shortness of breath, generalized fatigue, and bilateral hip pain. Pt. refused to have her BP obtained. Pt. requesting to stop. 4.5 1 min recovery 113 200/92 93 Pt. c/o moderate shortness of breath, generalized fatigue, and lessening bilateral hip pain. 3 min recovery 89 200/98 93 Pt. c/o mild shortness of breath, lessening generalized fatigue, and states bilateral hip pain has resolved. 6 min recovery 77 146/78 95 Pt. is asymptomatic; all symptoms have resolved back to baseline. Pt. performed an ETT; ETT was stopped at a non-diagnostic low heart rate due to pt. c/o moderate shortness of breath, generalized fatigue, bilateral hip pain, and a pt. request to stop the test. Pt. declined to have her BP obtained during the exercise portion of the test. Pt.'s symptoms resolved back to baseline prior to pt. leaving the Stress Lab. Pt. was conversing pleasantly with nursing staff upon leaving the Stress Lab and left ambulatory in no apparent distress.
== END 2024-12-10 01:40 ==
LOC: DI 01:20
PROVIDERS: PCP Nurse Practitioner Family; Visit Provider Nurse Practitioner Family
DX: R06.02 Shortness of breath (principal); R07.89 Other chest pain
CPT/HCPCS: 93016; 93018; 93017

== ENCOUNTER 2024-12-17 00:19 | Outpatient (CLI) | payer MEDICARE, SELFPAY ==
--- NOTE | 2024-12-17 | DI.US_ITS ---
APPROVED REPORT EXAM: Comprehensive 2D, Doppler, and color-flow Echocardiogram Patient Location: Out-Patient Managed Services Consultant: Yoladne Ralph RDCS (AE) Indications: Chest pain, Dizziness, giddiness, SOB Other Information Study Quality: Adequate Conclusion Normal left ventricular wall thickness and chamber size. Ejection fraction is 60 to 65%. Wall motion is normal Normal right ventricular size and function Both atria are normal in size There is no structural or hemodynamically significant valvular disease Ascending aorta measures 4.01 cm Wall motion Left Ventricle The left ventricle is normal size. The left ventricular systolic function is normal. The left ventricular ejection fraction is within the normal range. There is normal left ventricular wall thickness. There is normal LV segmental wall motion. There is no ventricular septal defect visualized. LVEF is 60-65%. Right Ventricle The right ventricle is normal size. The right ventricular systolic function is normal. Atria The left atrium size is normal. The right atrium size is normal. The interatrial septum is intact with no evidence for an atrial septal defect. Aortic Valve The aortic valve is normal in structure. Aortic valve is trileaflet. There is no aortic valvular stenosis. No aortic regurgitation is present. Mitral Valve The mitral valve is normal in structure. No evidence of mitral valve stenosis. Trace mitral regurgitation. Tricuspid Valve The tricuspid valve is normal in structure. There is no tricuspid valve stenosis. Trace tricuspid regurgitation. Unable to assess PA pressure. Pulmonic Valve The pulmonary valve is normal in structure. There is no pulmonic valvular stenosis. There is no pulmonic valvular regurgitation. Great Vessels The aortic root is normal in size. The ascending aorta is moderately dilated. Aortic arch is normal in caliber. IVC is normal in size and collapses >50% with inspiration. Pericardium There is no pericardial effusion. 2D Dimensions IVSD d PLAX 1.01 cm F: 0.6-1.0 Ao Root d 3.58 cm F: 2.7 - 3.3 LVPW d PLAX 1.01 cm F: 0.6 - 1.0 Ao Asc Diam d 4.01 cm F: 2.3 - 3.1 LVID d PLAX 4.31 cm F: 3.8 - 5.2 LVDs 2.79 cm F: 2.2 - 3.5 LV EF Teichholz 64.9 % FS 35.27 % LV EDV (Teich) 83.6 mL LV ESV (Teich) 29.3 mL M-Mode TAPSE 3.12 cm (M/F) >1.7 Auto EF LV EDV A4C 105.4 mL LV EDV A2C 115.8 mL LV EDV BP 111.4 mL LV ESV A4C 39.5 mL LV ESV A2C 44.4 mL LV ESV BP 42.0 mL LVEF(%) A4C 62.5 % LVEF(%) A2C 61.6 % LVEF(%) BP 62.3 % LV SV A4C 65.9 ml LV SV A2C 71.4 ml LV SV BP 69.4 ml LV CO A4C 3.6 L/min LV CO A2C 3.8 L/min LV CO BP 3.7 L/min HR A4C 55.22 BPM HR A2C 53.66 BPM LV EDV Index (BP) LA Volume LA Length A4C 4.5 cm LA Length A2C 5.0 cm LA Area A4C s 14.28 cm2 LA Area A2C s 15.43 cm2 LA Vol A4C A-L 38.25 mL LA Vol A2C A-L 40.59 mL LA Vol Biplane A-L 41.3 mL LA Vol/BSA A4C A-L LA Vol/BSA A2C A-L LA Vol/BSA BP A-L 23.8 mL/m2 LA Vol A4C MOD 35.8 mL LA Vol A2C MOD 37.0 mL LA Vol BP MOD 38.1 mL RA Volume RA Area A4C 10.1 cm2 RA ESV A4C (A-L) 21.3mL RA Vol/BSA A4C A-L RA Length A4C 4.1 cm RA ESV A4C (MOD) 20.3mL LV Diastology MV E' medial 0.102 (>0.07 m/s) MV E Vmax 1.11 (0.4-1.3 m/s) MV E/E' MED 10.89 (<14) MV A Vmax 1.20 (0.4-1.3 m/s) MV E' lateral 0.082 (>0.1 m/s) E/A Ratio 0.9 MV E/E' LAT 13.63 (<14) MV E' Average 0.092 m/s MV E/E'(average) 12.11 Aortic Valve AoV Vmax 1.50 m/s LVOT Vmax 1.16 m/s AoV Peak Grad 9.0 mmHg LVOT Peak Grad 5.4 mmHg AoV Area (Vmax) 2.12 cm2 LVOT VTI 0.284 m AoV VTI 0.352 m LVOT Mean Grad 2.9 mmHg AoV Mean Abilio. 0.98 m/s LVOT SV 77.64 mL AoV Mean Grad 4.5 mmHg LVOT Diam s 1.85 cm AoV Area (VTI) 2.21 cm2 AV Regurg Peak Gr. 8.95 mmHg Velocity Ratio 0.77 Mitral Valve MV DT 263 (160-240 msec) MV Vmax TIPS 1.12 m/s MV Mean Grad 1.8 (<2mmHg) MV VTI 0.410 m Pulmonary Valve PV Vmax 0.75 (0.5-1.5 m/s) RVOT Vmax 0.70 m/s PV Peak Grad 2.2 mmHg RVOT Peak Gr. 1.9 mmHg PV Mean Abilio 0.55 m/s RVOT VTI 0.147 m PV Mean Grad 1.4 mmHg RVOT Mean Gr. 1.0 mmHg Tricuspid Valve RA Pressure 3.00 mmHg TV S' 0.16 m/s
== END 2024-12-17 00:39 ==
LOC: DI 00:19
PROVIDERS: PCP Nurse Practitioner Family; Visit Provider Internal Medicine Cardiovascular Disease
DX: R07.89 Other chest pain (principal)
CPT/HCPCS: 93306

== ENCOUNTER 2024-12-22 02:10 | Outpatient (CLI) | payer MEDICARE, SELFPAY ==
--- NOTE | 2024-12-22 10:25 | DI.US_ITS ---
Exam(s) US CAROTID EXAM: US CAROTID CLINICAL HISTORY: Dizziness and Giddiness R42. TECHNIQUE: Ultrasound carotids performed using grayscale, color-flow, and spectral Doppler imaging. COMPARISON: No exams were available for comparison FINDINGS: RIGHT CAROTID ARTERY: Plaque: There is mild calcific plaque in the proximal internal carotid artery. Velocity elevation: None. LEFT CAROTID ARTERY: Plaque: There is mild calcific plaque in the carotid bulb. Velocity elevation: None. VERTEBRAL ARTERIES: Antegrade flow. Incidental note is made of a spongiform type nodule in the left lobe of the thyroid gland measuring 3 x 2.1 x 3 cm. Measurements: R Bulb: 46.5cm/s PS / 16.7cm/s ED R CCA: 59.5cm/s PS / 15.4cm/s ED R ECA: 84.1cm/s PS / 14.1cm/s ED R ICA Prox: 47.5cm/s PS / 17.9cm/s ED R ICA Mid: 47.5cm/s PS / 16.6cm/s ED R ICA Distal: 77cm/s PS /23cm/s ED R Vert: 41cm/s PS / 15.3cm/s ED R SVR: 1.3 R DVR: 1.5 L Bulb: 83.3cm/s PS / 22.6cm/s ED L CCA: 75.3cm/s PS / 22.9cm/s ED L ECA: 141.4cm/s PS / 19.4cm/s ED L ICA Prox: 53.8cm/s PS / 21.4cm/s ED L ICA Mid: 92.4cm/s PS / 19.8cm/s ED L ICA Distal: 85.1cm/s PS / 32.5cm/s ED L Vert: 59.7cm/s PS / 19.8cm/s ED L SVR: 1.2 L DVR: 0.9 IMPRESSION: No evidence for hemodynamically significant carotid stenosis. Criteria for Carotid Stenosis: Normal: ICA PSV <125 cm/s no plaque or intimal thickening is visible. <50% stenosis: ICA PSV <125 cm/s and plaque or intimal thickening is visible. 50-69% stenosis: ICA PSV is 125-250 cm/s and plaque is visible. >70% stenosis to near occlusion: ICA PSV >250 cm/s with visible plaque and luminal narrowing. DATA REPOSITORY:
== END 2024-12-22 02:30 ==
LOC: DI 02:10
PROVIDERS: PCP Nurse Practitioner Family; Visit Provider Nurse Practitioner Family
DX: R42 Dizziness and giddiness (principal)
CPT/HCPCS: 93880

== ENCOUNTER 2025-01-19 04:02 | Emergency (ER) | payer MEDICARE, SELFPAY ==
[2025-01-19] VITALS (28 sets, daily range): BP systolic 109–183; BP diastolic 47–91; PULSE 40–73; RESP 13–23; TEMP 36.5; O2SAT 92–96
--- NOTE | 2025-01-19 04:00 | RT.EKG_ITS ---
APPROVED REPORT Exam: Resting ECG Reason for Exam: chest pain Patient Location: E HR:67 bpm ECG Measurements Heart Rate 67 AXIS [place] 193 P 50 QRSd 94 QRS -62 QT 410 T 3 QTc 432 Conclusion Sinus rhythm...normal P axis, V-rate 60- 99 Anterolateral infarct, age indeterminate...Q >35mS, flat/neg T, V3-V6,I,aVL Left Rembert Normal Interval Q waves inferior limb leads and lateral precordial leads. No acute ST changes.
--- NOTE | 2025-01-19 04:18 | W.ED.GENAD ---
Discharge Plan Disposition Patient Disposition: Home Condition: Good Discharge Details Clinical Impression: Chest pain Primary Care Provider: APRIL CALERO ED Provider: Oscar Wan Meds and New Rx's Prescriptions: Continued ciclopirox 8 % solution 1 applic topical QHS ketoconazole 2 % cream 1 applic topical DAILY lamotrigine 200 mg tablet 200 mg PO DAILY simvastatin 10 mg tablet 10 mg PO QHS levomefolate calcium [L-Methylfolate] 15 mg tablet 15 mg PO DAILY Patient Comments: not taking hydrochlorothiazide 12.5 mg tablet 12.5 mg PO DAILY ibuprofen 600 MG tablet 600 mg PO .1 PO Q6H Qty: 40 1RF Discharge Instructions Instructions: Chest Pain, Adult ED Additional Instructions: You were seen in the ED for episode of chest pain. Your exam, vital signs, EKG, chest x-ray, laboratory studies are reassuring as is your recent stress test though it was submaximal. Please follow-up with primary care. Return to ED for any new or worsening chest pain, syncope, neurologic change, persistent shortness of breath, other concerns. Referrals: APRIL CALERO, [facility] [Primary Care Provider, Medicine] [facility] General Mode of arrival: ambulatory. Date/Time Provider Initiated Documentation: 01/19/25 04:14. Limitations to Documentation: no limitations. Information obtained by: patient and RN notes reviewed. HPI Narrative: Patient presents to ED with chest pain. Patient woke up with some left lateral chest pain that seem to be sharp in nature but then radiated across the chest. Was just kind of there for a while. Maybe felt a little short of breath but did not get lightheaded, diaphoretic. No abdominal pain or vomiting. No radiation to the back or neck. [place] like her right upper arm got a little tingly in the shoulder area but no real pain. No focal weakness or numbness. Took a baby aspirin and came to ED. Here states no pain or symptoms at this time. Reports having something similar to this this summer while in [place]. Ultimately was felt to have been an allergic reaction to lobster. Related Data Home Medications ?Medication ?Instructions ?Recorded ?Confirmed ibuprofen 600 mg tablet 600 mg PO .1 PO Q6H #40 tabs 03/18/15 01/19/25 lamotrigine 200 mg tablet 200 mg PO DAILY 11/18/20 01/19/25 levomefolate calcium 15 mg tablet 15 mg PO DAILY 11/18/20 01/19/25 (L-Methylfolate) simvastatin 10 mg tablet 10 mg PO QHS 11/18/20 01/19/25 hydrochlorothiazide 12.5 mg tablet 12.5 mg PO DAILY 03/07/22 01/19/25 ciclopirox 8 % topical solution 1 applic topical QHS 09/14/24 01/19/25 ketoconazole 2 % topical cream 1 applic topical DAILY 09/14/24 01/19/25 Previous Rx's ?Medication ?Instructions ?Recorded ibuprofen 600 mg tablet 600 mg PO .1 PO Q6H #40 tabs 03/18/15 Allergies Allergy/AdvReac Type Severity Reaction Status Date / Time latex Allergy Intermediate Itching Verified 01/19/25 04:18 lobster Allergy Unknown Other (See Verified 01/19/25 04:18 Comment) allopurinol AdvReac Intermediate Dehydration Verified 01/19/25 04:18 contrast dye AdvReac Unknown Other (See Uncoded 01/19/25 04:18 Comment) General Stated Complaint: Chest Pain LEE: 3 Exam Narrative Exam Narrative: Const: WDWN elderly female in NAD. VS per triage. HEENT: NC/AT. Normal facial exam. Neck: Supple. Trachea midline. Lungs: Normal respiratory effort. Lungs are clear. No chest wall tenderness. Cor: RRR without murmur. Good radial pulses. GI: Soft/ND/NT. Neuro: A+O x 3. Normal speech, mentation, gait. Cranial nerves II - XII grossly intact. No gross motor or sensory deficit. Ext: No C/C/E. No calf tenderness. Course Vital Signs Vital signs: Vital Signs Pulse 73 01/19/25 04:04 Respiratory Rate 16 01/19/25 04:04 Blood Pressure 183/91 H 01/19/25 04:04 Pulse Oximetry 96 01/19/25 04:04 Temperature Source Oral 01/19/25 04:04 Pulse 73 01/19/25 04:04 Respiratory Rate 18 01/19/25 04:15 Respiratory Effort Normal, Non-Labored 01/19/25 04:15 Respiratory Depth Normal 01/19/25 04:15 Respiratory Pattern Normal 01/19/25 04:15 Blood Pressure 183/91 H 01/19/25 04:04 Blood Pressure Position Supine 01/19/25 04:04 Pulse Oximetry 96 01/19/25 04:04 Oxygen Delivery Method Room Air 01/19/25 04:04 Oxygen Flow Rate 0 01/19/25 04:04 Pain Level 0 01/19/25 04:04 Medical Decision Making Patient presenting to ED with chest pain that woke her up from sleep. Pain initially left lateral then radiated across to her chest. Initially felt sharp resolved to a dull ache and is now gone. Maybe some shortness of breath associated with it. Some right upper arm tingling in the shoulder area but no pain. There was no associated lightheadedness, syncope, diaphoresis, nausea or vomiting. She did take 1 baby aspirin at home. She does have risk factors including smoking, high blood pressure, high cholesterol. Your EKG is sinus rhythm with left axis. She has Q waves inferior limb leads and precordial lateral leads. She has no acute ST changes. There is no old available for comparison. Currently without pain. Plan for IV, cardiac monitoring, laboratory studies including serial troponins. Chest imaging will be based upon D-dimer result. Patient's initial laboratory studies with slightly elevated white count at 11.3. Hemoglobin is normal. Chemistries and liver function unremarkable. Initial troponin is normal. D-dimer negative by age adjustment. Chest x-ray is ordered. Will obtain a 1 hour and 3-hour troponin given early presentation of patient after developing pain. Patient has had no recurrence of her pain. Second troponin remains normal. Chest x-ray per my read with some haziness in the right medial base area, no definite infiltrate. Will get radiology read this morning. Patient aware that we will be doing a 3-hour troponin to be sure it is remains normal given her early presentation. She does report that she did have cardiac stress test few months ago which she was unable to complete but was otherwise unremarkable for what she was able to do. Will sign out to oncoming ED provider pending radiology read of chest x-ray and third troponin. Medical Records Medical records reviewed: Yes I reviewed the patient's medical records. Medical records narrative: outpatient stress and ECHO Imaging Data Radiologic Study: Attestation: I personally reviewed and interpreted this imaging study as follows: Imaging: X-Ray My impression: see [facility] Lab Data Lab results reviewed: Yes I reviewed the patient's lab results. Lab results narrative: see [facility] ECG Data Attestation: I personally reviewed and interpreted this ECG (s) as follows: Prior ECG tracings: not available for review Interpretation: see EKG/MDM PFSH All Active Problems (Updated 01/19/25 @ 06:19 by Oscar Wan MD) Chest pain (Acute) Actinic keratosis (Acute) Dystrophia unguium (Acute) Onychomycosis (Acute) Tobacco use disorder (Acute) Bipolar 1 disorder (Acute) Sialocele (Acute) Smoker (Acute) Mass of left parotid gland (Acute) Hyperlipidemia (Acute) Hypertension (Chronic) Femoroacetabular impingement of right hip (Acute) Actinic keratoses (Acute) Medical History Metatarsalgia of both feet Ganglion cyst of volar aspect of left wrist Neoplasm of bone, soft tissue, or skin Wound dehiscence History of basal cell carcinoma Squamous cell carcinoma in situ Basal cell carcinoma of skin of other and unspecified parts of face Social History Smoking/Tobacco Use Status: Current every day Tobacco Type: cigarettes Smoking risk assessment performed?: Yes Alcohol Intake: never Drug use: Never Substance use type: does not use Do you feel safe at home: Yes Do you feel safe in your relationship?: Yes
[2025-01-19 04:25] LABS: Abs Immature Grans 0.15 10^3/uL (0.0-0.06); HCT 45.3 % (36.0-46.0); HGB 14.5 g/dL (11.2-15.7); Immature Grans % 1.3 %; MCH 26.9 pg (27.0-33.0); MCHC 32.0 % (32.0-36.0); MCV 84 fL (80-95); MPV 10.4 fL (8.0-11.0); Platelet Count 246 10^3/uL (130-400); RBC 5.40 10^6/uL (3.93-5.22); RDW 14.8 % (11.7-14.6); RDW-SD 45.1 fL; WBC 11.26 10^3/uL (4.4-10.8)
--- NOTE | 2025-01-19 04:45 | DI.RAD_ITS ---
Exam(s) XR CHEST 2V PA LATERAL EXAM: XR CHEST 2V PA LATERAL CLINICAL HISTORY: CP TECHNIQUE: 2D digital imaging was performed. Two views. COMPARISON: CT ABD PELVIS WO CONTRAST from 11/17/2017 CR,XR XR CHEST 2V PA LATERAL from 10/05/2020 CR,XR XR PORTABLE CHEST AP from 08/12/2022 FINDINGS: HEART: Normal size. Aorta: Tortuous. PULMONARY VASCULATURE: Normal. MEDIASTINUM: Unremarkable. LUNGS: Clear. PLEURAL SPACE: No pleural effusion or pneumothorax. BONE:Unremarkable for age. SOFT TISSUES: Unremarkable. IMPRESSION: No acute abnormality. DATA REPOSITORY: RADIATION DOSE DELIVERED:
[2025-01-19 04:49] LABS: D-Dimer 613 ng/mlFEU (<500)
[2025-01-19 05:01] LABS: ALT 19 U/L (14-59); AST 12 U/L (15-37); Albumin 4.3 g/dL (3.4-5.0); Alkaline Phosphatase 115 U/L (46-116); Anion Gap 9.3 mmol/L (3-11); BUN 14 mg/dL (7-18); Bilirubin, Total 0.4 mg/dL (0.2-1.0); CO2 27.7 mmol/L (21.0-32.0); Calcium 10.0 mg/dL (8.5-10.1); Chloride 100 mmol/L (98-107); Estimated GFR 79.22 (mL/min/1.73m2); Glucose 132 mg/dL (74-106); Magnesium 2.2 mg/dL (1.8-2.4); Potassium 4.0 mmol/L (3.5-5.1); Sodium 137 mmol/L (136-145); Total Protein 7.9 g/dL (6.4-8.2); Troponin I 9 ng/L (<or=51)
[2025-01-19 06:03] LABS: Troponin I 8 ng/L (<or=51)
[2025-01-19 07:50] LABS: Troponin I 8 ng/L (<or=51)
--- NOTE | 2025-01-19 08:26 | W.EDPROG ---
Date of service: 01/19/25 Time of Service: 08:26 Medical Decision Making This patient was in the emergency department at start of my shift. She had chest pain was pending a third troponin. Her third troponin returned and it was within normal limits with no significant delta. Patient was discharged per instructions from her original provider.I met with the patient at the time of her discharge. We discussed that she should return to the ED if her symptoms recurred or if she felt worse. Discharge Plan Disposition Patient Disposition: Home Condition: Good Discharge Details Clinical Impression: Chest pain Primary Care Provider: APRIL CALERO [facility] Prescriptions: Continued ciclopirox 8 % solution 1 applic topical QHS ketoconazole 2 % cream 1 applic topical DAILY lamotrigine 200 mg tablet 200 mg PO DAILY simvastatin 10 mg tablet 10 mg PO QHS levomefolate calcium [L-Methylfolate] 15 mg tablet 15 mg PO DAILY Patient Comments: not taking hydrochlorothiazide 12.5 mg tablet 12.5 mg PO DAILY ibuprofen 600 MG tablet 600 mg PO .1 PO Q6H Qty: 40 1RF Discharge Instructions Instructions: Chest Pain, Adult ED Additional Instructions: You were seen in the ED for episode of chest pain. Your exam, vital signs, EKG, chest x-ray, laboratory studies are reassuring as is your recent stress test though it was submaximal. Please follow-up with primary care. Return to ED for any new or worsening chest pain, syncope, neurologic change, persistent shortness of breath, other concerns. Referrals: APRIL CALERO, ASSISTANT PROFESSOR OF ART [Primary Care Provider, Medicine] Discharge Data Discharge Date/Time-TO BE ENTERED AT DEPARTURE: 01/19/25 08:57
--- NOTE | 2025-01-19 09:40 | DI.VRAD_ITS ---
PROCEDURE INFORMATION: Exam: XR Chest Exam date and time: 01/19/2025 5:13 AM Age: 69 years old Clinical indication: Other: Chest pain TECHNIQUE: Imaging protocol: Radiologic exam of the chest. Views: 2 views. COMPARISON: 1. CR XR CHEST 2V PA LATERAL 10/05/2020 5:09 PM 2. CR XR PORTABLE CHEST AP 08/12/2022 6:26 PM FINDINGS: Lungs: Right middle lobe opacity. Pleural spaces: Unremarkable. No pleural effusion. No pneumothorax. Heart/Mediastinum: Cardiomediastinal silhouette within normal limits. Bones/joints: Degenerative osseous changes. Left humeral head suture anchors and distal clavicle excision. IMPRESSION: Right middle lobe opacity which could represent atelectasis, scarring or pneumonia. Dictated and Authenticated by: Jem Davis MD. Orderin Savage Moore MD
== END 2025-01-19 08:57 | disposition home or self-care (01) ==
PROVIDERS: Emergency Provider Emergency Medicine; PCP Nurse Practitioner Family
DX: R07.9 Chest pain, unspecified (principal); Z72.0 Tobacco use; I10 Essential (primary) hypertension; Z86.39 Personal history of other endocrine, nutritional and metabolic disease
CPT/HCPCS: 99284 ×2; 36415; 00123; 80053; 93005; 71046; 83735; 84484; 85025; 85379; 93010

== ENCOUNTER 2025-01-28 08:40 | Outpatient (CLI) | payer MEDICARE, SELFPAY ==
--- NOTE | 2025-01-28 08:30 | RT.EKG_ITS ---
APPROVED REPORT Exam: Resting ECG Reason for Exam: cardiac evaluation Patient Location: O HR:79 bpm ECG Measurements Heart Rate 79 AXIS [place] 187 P 27 QRSd 92 QRS -67 QT 386 T 21 QTc 443 Conclusion Sinus rhythm...normal P axis, V-rate 50- 99 Probable left atrial enlargement...P >50mS, <-0.10mV V1 Left axis Poor R wave progression
== END 2025-01-28 08:41 | disposition home or self-care (01) ==
LOC: DI.CARD 08:41
PROVIDERS: PCP Nurse Practitioner Family; Visit Provider Internal Medicine Cardiovascular Disease
DX: I10 Essential (primary) hypertension (principal); R07.9 Chest pain, unspecified; I51.7 Cardiomegaly
CPT/HCPCS: 93010

== ENCOUNTER → 2025-01-28 11:21 | Outpatient (BNVA) | payer MEDICARE, SELFPAY | PROVIDERS: PCP Nurse Practitioner Family; Referring Provider Nurse Practitioner Family; Visit Provider Internal Medicine Cardiovascular Disease | DX: R07.89 Other chest pain (principal); E78.5 Hyperlipidemia, unspecified; I10 Essential (primary) hypertension | CPT/HCPCS: 99214; 93005 ==

== ENCOUNTER → 2025-02-08 10:15 | Outpatient (BNVA) | payer MEDICARE, SELFPAY | PROVIDERS: PCP Nurse Practitioner Family; Referring Provider Nurse Practitioner Family; Visit Provider Podiatrist | DX: L60.3 Nail dystrophy (principal); B35.1 Tinea unguium | CPT/HCPCS: 99213 ==

== ENCOUNTER → 2025-03-08 10:59 | Outpatient (BNVA) | payer MEDICARE, SELFPAY | PROVIDERS: PCP Nurse Practitioner Family; Referring Provider Nurse Practitioner Family; Visit Provider Podiatrist | DX: L60.3 Nail dystrophy (principal); B35.1 Tinea unguium | CPT/HCPCS: 11755 ==

== ENCOUNTER → 2025-03-29 09:49 | Outpatient (BNVA) | payer MEDICARE, SELFPAY | PROVIDERS: PCP Nurse Practitioner Family; Referring Provider Nurse Practitioner Family; Visit Provider Podiatrist | DX: B35.1 Tinea unguium (principal); L60.3 Nail dystrophy | CPT/HCPCS: 11755 ==